=== PATIENT | male | born 1945 | race Caucasian/White ===

== ENCOUNTER 2017-04-21 11:00 | Emergency (ER) | payer OTHER ==
[~2017-04-21] VITALS: Ht 180.3 cm; Wt 72.5 kg
[2017-04-21 11:15] VITALS: Ht 180.3 cm; Wt 72.5 kg
[2017-04-21] MEDS ORDERED: IBUP-103 PO (11:33)
[2017-04-21] MEDS ORDERED: LEVO50TA PO (11:33)
[2017-04-21] MEDS ORDERED: KFL/250 PO (11:33)
[2017-04-21] MEDS ORDERED: CALC500C70 PO (11:33)
[2017-04-21] MEDS ORDERED: OXYC-106 PO (11:33)
[2017-04-21] MEDS ORDERED: LEUP1INJ6 IM (11:33)
[2017-04-21] MEDS ORDERED: GING1CAP PO (11:33)
[2017-04-21] MEDS ORDERED: RANI150T3 PO (11:33)
[2017-04-21] MEDS ORDERED: SODIUM CHLORIDE 0.9% 1000ML 1,000 ML IV SCH ×2 (13:00→18:00)
[2017-04-21 13:29] LABS: BASO % 0.1 %; BASO ABS # 0.02 K/uL (0-0.2); COMPLETE YES; EOS % 0.3 %; HEMATOCRIT 32.7 % (42-52); IG% 2.4 %; LYMPH % 9.1 %; LYMPH ABS # 1.39 K/uL (1.2-3.4); MEAN CELL VOLUME 87.4 fL (80-100); MEAN CORPUSCULAR HEMOGLOBIN 28.9 pg (25-34); MEAN PLATELET VOLUME 8.2 fL (7.4-10.4); MONO % 4.6 %; NEUT % 83.5 %; PLATELET COUNT 265 K/uL (130-400); RED BLOOD COUNT 3.74 M/uL (4.7-6.1); WHITE BLOOD COUNT 15.34 K/uL (4.8-10.8)
[2017-04-21 13:45] LABS: ALT/SGPT 59 U/L (12-78); AST/SGOT 40 U/L (15-37); BLOOD UREA NITROGEN 23 mg/dl (7-18); BUN/CREATININE RATIO 25.4 (10-20); CALCIUM 8.8 mg/dl (8.5-10.1); CARBON DIOXIDE 28 mmol/L (21-32); CHLORIDE 98 mmol/L (98-107); CREATININE 0.92 mg/dl (0.60-1.40); GLUCOSE 123 mg/dl (70-99); MAGNESIUM 2.3 mg/dl (1.8-2.4); POTASSIUM 3.9 mmol/L (3.5-5.1); SODIUM 133 mmol/L (136-145)
[2017-04-21 13:49] LABS: ALKALINE PHOSPHATASE 165 U/L (45-117); PHOSPHORUS 3.8 mg/dl (2.5-4.9)
--- NOTE | 2017-04-21 13:49 | DIAGNOSTIC IMAGING REPORT ---
CHEST ONE VIEW PORTABLE CLINICAL HISTORY: fatigue dyspnea COMPARISON STUDY: No previous studies for comparison. FINDINGS: The bones soft tissues and hemidiaphragms are normal. The cardiomediastinal silhouette is normal. The lungs are clear. The pulmonary vasculature is normal. Benign calcified granuloma peripheral left midlung. IMPRESSION: No acute process The above report was generated using voice recognition software. It may contain grammatical, syntax or spelling errors. Electronically signed by: Bob George M.D. 04/21/2017 1:48 PM Dictated Date/Time: 04/21/2017 1:47 PM
--- NOTE | 2017-04-21 13:54 | EMERGENCY ROOM VISIT NOTE ---
History Report prepared by Olivia: Krystyna Cifuentes Under the Supervision of: Dr. Mamadou Narayan M.D. First contact with patient: 12:40 Chief Complaint: BACK PAIN Stated Complaint: SEVERE BACK PAIN, RT SHOULDER, LEG, SWOLLEN HIP History of Present Illness The patient is a 71 year old male who presents to the Emergency Room with complaints of worsening lower back pain for the past two weeks. He initially noticed right hip pain that radiated across his lower back. He has worsening pain with movement. He is now having a more difficult time walking and moving around. He rates his pain as a 10/10 in severity. The patient states that prior to his pain, he had no trouble ambulating. Over the past 2 weeks he has become increasingly weaker. He reports episodes of shaking as well as diaphoresis and chills. He has not been eating or drinking much and feels like he might be dehydrated. He has cramping in his right leg that he has been told is due to his dehydration. The patient also notes that in this same time period he has developed right shoulder pain. He can't press down with his right hand due to the pain in his shoulder. Family states that he has been using crutches lately for his legs and suggest that he may have injured his shoulder using the crutches. The patient was seen in the ED at [facility] last week for his back pain and had a CT scan of his pelvis and lumbar spine. He was discharged home and followed-up with his PCP in the office two days ago. The patient had redness to his left foot that had been going on for about 1 week. His PCP started him on a 10-day course of antibiotics because they were concerned that he had an infection. The patient was recently diagnosed with prostate cancer in October 2016. He is not currently undergoing any chemotherapy but he has received hormone injections. He received his first injection in November and then had an injection of Leuprolide in December. He has not had a prostatectomy. Dr. Cooley is his oncologist, and the patient has not spoken to him regarding these new symptoms. The patient denies any diarrhea, constipation, dysuria, urinary symptoms, and incontinence. Source of History: patient, family Onset: 2 weeks ago Position: back (lower) Symptom Intensity: 10/10 Quality: other (radiating) Timing: worsening Modifying Factors (Worsening): movement Associated Symptoms: + chills, + diaphoresis, + weakness, No diarrhea, No urinary symptoms Note: Pt also notes right shoulder pain. Review of Systems See HPI for pertinent positives and negatives. A total of ten systems were reviewed and were otherwise negative. Past Medical & Surgical Medical Problems: (1) Prostate cancer Family History No pertinent history stated. Social History Smoking Status: Never Smoker Marital Status: Housing Status: lives with family Current/Historical Medications Scheduled Calcium/Vitamin D (Os-Vaibhav 500 Plus D), 2 TAB PO BID Cephalexin Monohydrate (Keflex), 250 MG PO Q6H Freya (Zingiber Officinalis) (Freya), 500 MG PO BID Leuprolide Acetate (6 Month) (Lupron Depot), 45 MG IM UD Levothyroxine Sodium (Synthroid), 50 MCG PO DAILY Ranitidine Hcl (Zantac), 150 MG PO DAILY Scheduled PRN Ibuprofen Tab (Advil), 200 MG PO UD PRN for Pain Oxycodone/Acetaminophen 10MG/325MG (Percocet 10MG/325MG), 1 TAB PO Q4-6H PRN for Pain Allergies Coded Allergies: No Known Allergies (Unverified , 04/21/17) Physical Exam Vital Signs Date Time Temp Pulse Resp B/P (MAP) Pulse Ox O2 Delivery O2 Flow Rate FiO2 04/21/17 19:50 113 18 157/99 97 04/21/17 17:54 36.9 103 16 145/83 96 Room Air 04/21/17 15:41 102 16 150/91 95 Room Air 04/21/17 14:42 87 16 152/90 99 Room Air 04/21/17 13:10 89 16 148/91 96 Room Air 04/21/17 11:15 36.9 98 20 105/70 97 Room Air Physical Exam GENERAL: Awake, fatigued, cachectic-appearing, in no distress HENT: Normocephalic, atraumatic. Oropharynx unremarkable. Dry mucous membranes. EYES: Normal conjunctiva. Sclera non-icteric. NECK: Supple. No nuchal rigidity. FROM. No JVD. RESPIRATORY: Clear to auscultation. CARDIAC: Regular rate, normal rhythm. Extremities warm and well perfused. Pulses equal. ABDOMEN: Soft, non-distended. No tenderness to palpation. No rebound or guarding. No masses. RECTAL: Deferred. MUSCULOSKELETAL: Chest examination reveals no tenderness. He has generalized weakness in the extremities but no focal weakness. He has pain with active ROM of the right shoulder, minimal with passive ROM. LOWER EXTREMITIES: Left foot has a 10x7 erythematous patch on the dorsum of the left foot. No induration, warmth, or underlying fluctuance. Mildly tender to palpation, blanchable. NEURO: Normal sensorium. No sensory or motor deficits noted. SKIN: Dry, no rash or jaundice noted. Medical Decision & Procedures ER Provider Diagnostic Interpretation: CT report obtained from [facility] and stated below per their records: CT PELVIS WITHOUT CONTRAST: IMPRESSION: No definite acute process. No CT evidence for traumatic injury to the pelvis. Borderline enlarged prostate. Mild sclerotic change along the right side of the pubic bone medially adjacent to the pubic symphysis. Findings may be degenerative. Difficult to exclude early metastatic disease. Given the clinical history of prostate cancer, consider bone scan if clinically indicated. Colonic diverticulosis without findings of diverticulitis. Signed by Ryan Pablo MD Radiology results as stated below per my review and radiologist interpretation: CHEST ONE VIEW PORTABLE CLINICAL HISTORY: fatigue dyspnea COMPARISON STUDY: No previous studies for comparison. FINDINGS: The bones soft tissues and hemidiaphragms are normal. The cardiomediastinal silhouette is normal. The lungs are clear. The pulmonary vasculature is normal. Benign calcified granuloma peripheral left midlung. IMPRESSION: No acute process The above report was generated using voice recognition software. It may contain grammatical, syntax or spelling errors. Electronically signed by: Bob George M.D. 04/21/2017 1:48 PM Dictated Date/Time: 04/21/2017 1:47 PM LUMBAR SPINE COMBINATION CLINICAL HISTORY: 71 years-old Male presenting with hip and low back pain for 2 weeks, no trauma or known injury. TECHNIQUE: Multisequence, multiplanar MR imaging of the lumbar spine was performed before and after the administration of intravenous contrast. IV contrast: 7 mL of Gadavist. COMPARISON: None. FINDINGS: Vertebral bodies maintain normal height and alignment. Bony edema along the posterior aspect of the endplates of L2-3 with increased signal intensity within the L2-3 intervertebral disc. Less pronounced bony edema along the endplates of L3-4 also accompanied by increased signal intensity within the L3-4 intervertebral disc space. Apparent epidural fluid collection along the ventral thecal sac at the level of L2-3 extending inferiorly to L4-5. Enhancement of the endplates at L2-3 also noted and possibly to a lesser degree at L3-4. Mild paraspinal and retroperitoneal infiltration also noted at these levels. No paraspinal fluid collection. Fatty endplate changes noted anteriorly at L2-3 and diffusely at L4-5. Multilevel degenerative changes disc bulges from L1-2 to L3-4. Diffuse ligamentum flavum thickening also noted. Mild neural foraminal narrowing results at L2-3 primarily as result of mild disc bulge. The spinal cord ends in good position at L1. The cauda equina has a buckled appearance with suspected impingement at L2-3 through L4-5 secondary to the presence of the epidural collection and degenerative change. Complete effacement of CSF at these levels noted. No abnormal enhancement of the rootlets of the cauda equina to suggest arachnoiditis. Nonspecific subcutaneous edema noted throughout the lumbar region. Bladder distention. IMPRESSION: Abnormal signal intensity within the L2-3 and L4-5 intervertebral disc spaces with endplate edema and enhancement accompanied by an ventral epidural collection. These findings are highly suspicious for infectious discitis osteomyelitis with epidural abscess. Resultant impingement of the cauda equina from L2-3 through L4-5 secondary to the epidural collection and degenerative change. The report will be called/faxed according to standard departmental protocol. Electronically signed by: Levi Elmore M.D. 04/21/2017 3:51 PM Dictated Date/Time: 04/21/2017 3:42 PM Laboratory Results 04/21/17 13:15 Red Blood Count 3.74, Mean Corpuscular Volume 87.4, Mean Corpuscular Hemoglobin 28.9, Mean Corpuscular Hemoglobin Concent 33.0, Mean Platelet Volume 8.2, Neutrophils (%) (Auto) 83.5, Lymphocytes (%) (Auto) 9.1, Monocytes (%) (Auto) 4.6, Eosinophils (%) (Auto) 0.3, Basophils (%) (Auto) 0.1, Neutrophils # (Auto) 12.82, Lymphocytes # (Auto) 1.39, Monocytes # (Auto) 0.70, Eosinophils # (Auto) 0.04, Basophils # (Auto) 0.02 04/21/17 13:15 Test 04/21/17 13:15 White Blood Count 15.34 K/uL (4.8-10.8) Red Blood Count 3.74 M/uL (4.7-6.1) Hemoglobin 10.8 g/dL (14.0-18.0) Hematocrit 32.7 % (42-52) Mean Corpuscular Volume 87.4 fL (80-100) Mean Corpuscular Hemoglobin 28.9 pg (25-34) Mean Corpuscular Hemoglobin Concent 33.0 g/dl (32-36) Platelet Count 265 K/uL (130-400) Mean Platelet Volume 8.2 fL (7.4-10.4) Neutrophils (%) (Auto) 83.5 % Lymphocytes (%) (Auto) 9.1 % Monocytes (%) (Auto) 4.6 % Eosinophils (%) (Auto) 0.3 % Basophils (%) (Auto) 0.1 % Neutrophils # (Auto) 12.82 K/uL (1.4-6.5) Lymphocytes # (Auto) 1.39 K/uL (1.2-3.4) Monocytes # (Auto) 0.70 K/uL (0.11-0.59) Eosinophils # (Auto) 0.04 K/uL (0-0.5) Basophils # (Auto) 0.02 K/uL (0-0.2) RDW Standard Deviation 46.3 fL (36.4-46.3) RDW Coefficient of Variation 14.5 % (11.5-14.5) Immature Granulocyte % (Auto) 2.4 % Immature Granulocyte # (Auto) 0.37 K/uL (0.00-0.02) Anion Gap 7.0 mmol/L (3-11) Estimated GFR () 97.3 Estimated GFR (Non- 84.0 BUN/Creatinine Ratio 25.4 (10-20) Calcium Level 8.8 mg/dl (8.5-10.1) Phosphorus Level 3.8 mg/dl (2.5-4.9) Magnesium Level 2.3 mg/dl (1.8-2.4) Total Bilirubin 0.8 mg/dl (0.2-1) Direct Bilirubin 0.3 mg/dl (0-0.2) Aspartate Amino Transf (AST/SGOT) 40 U/L (15-37) Alanine Aminotransferase (ALT/SGPT) 59 U/L (12-78) Alkaline Phosphatase 165 U/L (45-117) Total Creatine Kinase 11 U/L (39-308) Total Protein 6.5 gm/dl (6.4-8.2) Albumin 1.8 gm/dl (3.4-5.0) Laboratory results reviewed by me. Medications Administered Medications (Trade) Dose Ordered Sig/Mor Route Start Time Stop Time Status Last Admin Dose Admin Sodium Chloride 1,000 ml @ 999 mls/hr Q1H1M IV 04/21/17 13:00 04/21/17 21:10 DC 04/21/17 13:10 999 MLS/HR Oxycodone HCl (Roxicodone Immediate Rel Tab) 5 mg NOW STAT PO 04/21/17 14:33 04/21/17 14:34 DC 04/21/17 14:37 5 MG Cefepime HCl 2000 mg/Dextrose 122.6 ml @ 200 mls/hr NOW STAT IV 04/21/17 17:02 04/21/17 17:38 DC 04/21/17 17:58 200 MLS/HR Vancomycin HCl 1800 mg/Sodium Chloride 536 ml @ 200 mls/hr NOW ONCE IV 04/21/17 18:00 04/21/17 20:40 DC 04/21/17 18:32 200 MLS/HR Morphine Sulfate (MoRPHine SULFATE INJ) 4 mg NOW STAT IV 04/21/17 17:51 04/21/17 17:53 DC 04/21/17 18:32 4 MG Sodium Chloride 1,000 ml @ 125 mls/hr Q8H IV 04/21/17 18:00 04/21/17 21:10 DC 04/21/17 18:35 125 MLS/HR ED Course 1240: The patient was evaluated in room C5. A complete history and physical exam was performed. 1300: NSS 1000 ml @ 999 mls/hr IV 1421: At this time I spoke with Dr. Cooley the patient's oncologist. We discussed the patient's case. He states that the patient has a grade 10 stage D prostate cancer. This is a high grade that carries a poor prognosis. He started the patient on hormone therapy and his PSA had responded. In November the patient had a bone scan that was negative for any bony involvement. Dr. Cooley agreed with the lumbar spine MRI. He recommended considering a CT for organ involvement if I think it is necessary. If any of the findings are cancer- related, he accept the patient for further care at his facility. 1433: Oxycodone Hcl 5 mg PO 1545: Gadavist 7 mmol IV - PRN 1559: I discussed the patient's MRI results with Dr. Elmore the radiologist. They felt that these findings are not consistent with a metastatic lesion. 1607: I spoke with Dr. Knox of spinal surgery with [facility]. We discussed the patient's case. He is concerned that the patient should be transferred to a tertiary care center. 1625: I reassessed the patient at this time. At this time I extensively discussed the results and treatment plan with the patient and his family. I answered all pertaining questions that they had. They expressed understanding and verbalized agreement. The patient will be transferred to [facility] for further management. 1702: Cefepime HCl 2000 mg/Dextrose 122.6 ml @ 200 mls/hr IV, Vancomycin HCl 1.25 gm IV 1735: I spoke with Dr. Sundar Bowie of neurosurgery at [facility]. We discussed the patient's case and he appreciated the complicated situation and accepted the patient for transfer but requested that I speak to the medicine team. 1742: I spoke with Dr. Cabrales, the hospitalist. We discussed the patient's case and he was accepted for transfer to [facility]. The patient will be a direct admission. 1751: Morphine sulfate 4 mg IV 1800: NSS 1000 ml @ 125 mls/hr IV, Vancomycin HCl 1800 mg/Sodium Chloride 536 ml @ 200 mls/hr IV 1814: I updated the patient and his family on the transfer status. I answered all of their questions and the patient is currently resting more comfortably. Medical Decision I reviewed the patient's past medical history, medications, and the nursing notes as described above. Differential diagnoses includes musculoskeletal strain, metastatic bony disease , dehydration, failure to thrive. Patient is a 71-year-old gentleman with a past medical history high-grade prostate cancer who presents to the emergency department with worsening lower back and right hip pain over the past 3 weeks per history of present illness. On arrival the patient appears fatigued, cachectic, and in pain. Otherwise in no acute distress and AFVSS. On exam, the patient has tenderness to palpation throughout his lumbar area and right hip, as well as pain with active and passive range of motion of the right hip, however demonstrates good strength and sensation intact in bilateral lower extremities. Additionally the patient denies any urinary retention or bowel incontinence. Despite CT scan of pelvis and L-spine week prior MRI was ordered to further characterize the patient's L spine considering his worsening pain. At this time I discussed the case with the patient's oncologist Dr. Vines who will explain the patient's recent course regarding his diagnosis high-grade prostate cancer with a poor prognosis and agreed with plan for MRI. Subsequently, MRI demonstrated fluid collection at lumbar spine suspicious for osteomyelitis and discitis with associated epidural abscess causing compression on the cauda equina. In this setting, patient's WBC is elevated to 15 and LFTs with also mild elevation. Findings discussed with our spine surgeon here and considering the patient's comorbidities with high-grade prostate cancer recommendations for management and had a tertiary care center. The patient is followed by oncology affiliated with [facility] patient's case was discussed with neurosurgery spine Dr. Bowie and [facility] who agreed to accept the patient for transfer with admission to the hospitalist medicine service. I discussed the case with Dr. Sweet who accepted the patient for admission. Patient blood cultures were drawn and patient was given cefepime and vancomycin. Medication Reconcilliation Current Medication List: was personally reviewed by me Blood Pressure Screening Patient's blood pressure: Elevated blood pressure Blood pressure disposition: Elevated BP felt to be situational Consults Time Called: [phone] Consulting Physician: Dr. Cooley Returned Call: [phone] At this time I spoke with Dr. Cooley the patient's oncologist. We discussed the patient's case. He states that the patient has a grade 10 stage D prostate cancer. This is a high grade that carries a poor prognosis. He started the patient on hormone therapy and his PSA had responded. In November the patient had a bone scan that was negative for any bony involvement. Dr. Cooley agreed with the lumbar spine MRI. He recommended considering a CT for organ involvement if I think it is necessary. If any of the findings are cancer-related, he accept the patient for further care at his facility. Additional Consults: Time Called: [phone] Consulted Physician: Dr. Elmore Returned Call: [phone] Additional Comments: I discussed the patient's MRI results with Dr. Elmore the radiologist. They felt that these findings are not consistent with a metastatic lesion. Time Called: [phone] Consulted Physician: Dr. Knox Returned Call: [phone] Additional Comments: I spoke with Dr. Knox of spinal surgery with [facility]. We discussed the patient's case. He is concerned that the patient should be transferred to a tertiary care center. Impression Primary Impression: Epidural abscess Scribe Attestation The scribe's documentation has been prepared under my direction and personally reviewed by me in its entirety. I confirm that the note above accurately reflects all work, treatment, procedures, and medical decision making performed by me. Departure Information Dispostion Transfer Acute Care Facility Referrals No Doctor, Assigned (PCP) Patient Instructions [facility]
[2017-04-21] MEDS ORDERED: OXYCODONE HCL IR 5 MG TAB (IMMEDIATE RELEASE) PO STA (14:33)
[2017-04-21] MEDS ORDERED: GADAVIST IV PRN (15:45)
--- NOTE | 2017-04-21 15:52 | DIAGNOSTIC IMAGING REPORT ---
LUMBAR SPINE COMBINATION CLINICAL HISTORY: 71 years-old Male presenting with hip and low back pain for 2 weeks, no trauma or known injury. TECHNIQUE: Multisequence, multiplanar MR imaging of the lumbar spine was performed before and after the administration of intravenous contrast. IV contrast: 7 mL of Gadavist. COMPARISON: None. FINDINGS: Vertebral bodies maintain normal height and alignment. Bony edema along the posterior aspect of the endplates of L2-3 with increased signal intensity within the L2-3 intervertebral disc. Less pronounced bony edema along the endplates of L3-4 also accompanied by increased signal intensity within the L3-4 intervertebral disc space. Apparent epidural fluid collection along the ventral thecal sac at the level of L2-3 extending inferiorly to L4-5. Enhancement of the endplates at L2-3 also noted and possibly to a lesser degree at L3-4. Mild paraspinal and retroperitoneal infiltration also noted at these levels. No paraspinal fluid collection. Fatty endplate changes noted anteriorly at L2-3 and diffusely at L4-5. Multilevel degenerative changes disc bulges from L1-2 to L3-4. Diffuse ligamentum flavum thickening also noted. Mild neural foraminal narrowing results at L2-3 primarily as result of mild disc bulge. The spinal cord ends in good position at L1. The cauda equina has a buckled appearance with suspected impingement at L2-3 through L4-5 secondary to the presence of the epidural collection and degenerative change. Complete effacement of CSF at these levels noted. No abnormal enhancement of the rootlets of the cauda equina to suggest arachnoiditis. Nonspecific subcutaneous edema noted throughout the lumbar region. Bladder distention. IMPRESSION: Abnormal signal intensity within the L2-3 and L4-5 intervertebral disc spaces with endplate edema and enhancement accompanied by an ventral epidural collection. These findings are highly suspicious for infectious discitis osteomyelitis with epidural abscess. Resultant impingement of the cauda equina from L2-3 through L4-5 secondary to the epidural collection and degenerative change. The report will be called/faxed according to standard departmental protocol. Electronically signed by: Levi Elmore M.D. 04/21/2017 3:51 PM Dictated Date/Time: 04/21/2017 3:42 PM
[2017-04-21] MEDS ORDERED: VANCOMYCIN 1GM/270ML NSS IV STA (17:02)
[2017-04-21] MEDS ORDERED: CEFEPIME IV 2,000 MG in DEXTROSE 5% 100ML 100 ML IV STA (17:02)
[2017-04-21] MEDS ORDERED: VANCOMYCIN INJ 1,250 MG in SODIUM CHLORIDE 0.9% 250ML 250 ML IV STA (17:50)
[2017-04-21] MEDS ORDERED: MoRPHine SULFATE 4 MG/ML 1 ML CARP\\VIAL IV STA (17:51)
[2017-04-21 17:54] VITALS: TEMP 36.9
[2017-04-21] MEDS ORDERED: VANCOMYCIN INJ 1,800 MG in SODIUM CHLORIDE 0.9% 500ML 500 ML IV ONE (18:00)
[2017-04-21 19:50] VITALS: BP 157/99; PULSE 113; O2SAT 97
== END 2017-04-21 19:50 | disposition short-term general hospital (02) ==
LOC: C.EDB 11:02 → C.EDC 19:50
DX: G06.2 Extradural and subdural abscess, unspecified (principal); C61 Malignant neoplasm of prostate; Z79.899 Other long term (current) drug therapy